=== PATIENT | male | born 1945 | race Caucasian/White ===

== ENCOUNTER 2020-03-30 14:15 | Emergency (ER) | payer OTHER ==
--- NOTE | 2020-03-30 15:10 | EDM.PDOC ---
ED HPI GENERAL MEDICAL PROBLEM - General Chief Complaint: General Stated Complaint: FEVER Time Seen by Provider: 03/30/20 14:40 Source of Information: Reports: Patient History Limitations: Reports: No Limitations - History of Present Illness INITIAL COMMENTS - FREE TEXT/NARRATIVE: Patient presents to ER with complaints of a headache and low grade fever. Has mild cough and chest congestion. Denies shortness of breath. Does have sinus congestion and PND. No nausea/vomiting/diarrhea. Denies loss of taste or smell. Has had symptoms since Wednesday. also has similar symptoms. Was tested on Wednesday and found out today that she has COVID. Onset: Today Duration: Day(s):, Improving Location: Reports: Chest Quality: Reports: Ache Severity: Mild Associated Symptoms: Reports: Cough, cough w sputum, Fever/Chills, Malaise. Denies: Confusion, Chest Pain, Loss of Appetite, Nausea/Vomiting, Shortness of Breath, Syncope, Weakness Treatments MECHATRONICS TECHNOLOGIST: Reports: Other Medication(s) Other Treatments MECHATRONICS TECHNOLOGIST: Mucinex - Related Data Allergies Allergy/AdvReac Type Severity Reaction Status Date / Time clindamycin [From Cleocin] Allergy Cannot Verified 03/30/20 15:02 Remember Home Meds: Home Meds Albuterol Sulfate [Proair Hfa] 8.5 gm IH Q4H PRN 03/30/20 [History] Fluticasone Propionate [Flonase] 1 puff NS DAILY 03/30/20 [History] Fluticasone Propionate [Flovent HFA 220 MCG] 2 puff INH BID 03/30/20 [History] Past Medical History HEENT History: Reports: Cataract Genitourinary History: Reports: Prostate Disorder Oncologic (Cancer) History: Reports: Basal Cell Carcinoma - Past Surgical History HEENT Surgical History: Reports: Naso-Sinus Surgery Dermatological Surgical History: Reports: Skin Biopsy Social & Family History - Tobacco Use Tobacco Use Status *Q: Never Tobacco User Second Hand Smoke Exposure: No ED ROS GENERAL - Review of Systems Review Of Systems: See Below Constitutional: Reports: Fever, Chills, Malaise, Fatigue. Denies: Weakness, Decreased Appetite HEENT: Reports: Rhinitis, Sinus Problem. Denies: Ear Pain, Throat Pain Respiratory: Reports: Cough, Sputum. Denies: Shortness of Breath Cardiovascular: Denies: Chest Pain, Edema, Lightheadedness Endocrine: Denies: Fatigue GI/Abdominal: Reports: Diarrhea. Denies: Abdominal Pain, Nausea, Vomiting : Reports: No Symptoms Musculoskeletal: Reports: No Symptoms Skin: Reports: No Symptoms Neurological: Reports: Headache ED EXAM, GENERAL - Physical Exam Exam: See Below Exam Limited By: No Limitations General Appearance: Alert, WD/WN, No Apparent Distress Ears: Normal External Exam, Normal TMs Nose: Normal Inspection, Normal Mucosa, Nasal Drainage Throat/Mouth: Normal Inspection, Normal Oropharynx Head: Normocephalic Neck: Normal Inspection, Supple, Non-Tender Respiratory/Chest: No Respiratory Distress, Rhonchi Cardiovascular: Regular Rate, Rhythm, No Edema GI/Abdominal: Normal Bowel Sounds, Soft, Non-Tender Extremities: Normal Inspection, No Pedal Edema Neurological: Alert, Oriented Skin Exam: Warm, Dry Course - Vital Signs Last Recorded V/S: Last Vital Signs Temp 99 F 03/30/20 14:35 Pulse 84 03/30/20 14:35 Resp 18 03/30/20 14:35 BP 162/90 H 03/30/20 14:35 Pulse Ox 94 L 03/30/20 14:35 - Orders/Labs/Meds Labs: Laboratory Tests 03/30/20 Range/Units 14:30 SARS CoV-2 RNA Rapid SANDOR Positive H (NEGATIVE) - Re-Assessments/Exams Free Text/Narrative Re-Assessment/Exam: 03/30/20 15:08 COVID positive. Departure - Departure Time of Disposition: 15:09 Disposition: Home, Self-Care 01 Condition: Fair Clinical Impression: COVID-19 - Discharge Information *PRESCRIPTION DRUG MONITORING PROGRAM REVIEWED*: Not Applicable *COPY OF PRESCRIPTION DRUG MONITORING REPORT IN PATIENT RJ: Not Applicable Instructions: COVID-19 Frequently Asked Questions, COVID-19 Additional Instructions: 1. Rest 2. Push fluids 3. Frequent position changes 4. May try funmilayo keren for nausea 5. Dexamethasone 6 mg daily for 5 days 6. Singulair 10 mg daily for 5 days 7. Return to ER if develop any shortness of breath, worsening weakness or progression of illness Sepsis Event Note (ED) - Evaluation Sepsis Screening Result: No Definite Risk - Focused Exam Vital Signs: Vital Signs Temp Pulse Resp BP Pulse Ox 03/30/20 14:35 99 F 84 18 162/90 H 94 L
[2020-03-30] MEDS ORDERED: Dexamethasone 4 MG Tab PO SCH (15:15)
[2020-03-30] MEDS ORDERED: Montelukast 10 MG Tab PO SCH ×2 (15:20→20:00)
[2020-03-30] MEDS ORDERED: Montelukast 10 MG Tab ONE (15:39)
== END 2020-03-30 15:30 | disposition home or self-care (01) ==
LOC: CC.ED 14:15
DX: U07.1 COVID-19 (principal); Z88.1 Allergy status to other antibiotic agents; Z79.899 Other long term (current) drug therapy
CPT/HCPCS: 99284; U0002